=== PATIENT | male | born 1995 | race Caucasian/White ===

== ENCOUNTER → 2017-08-31 | Outpatient (CLI) | payer OTHER ==
[2017-08-31 19:55] LABS: FREE T4 0.81 NG/DL (0.78-1.33)
== END ==
LOC: M LAB 17:10
DX: E04.1 Nontoxic single thyroid nodule (principal)
CPT/HCPCS: 84443

== ENCOUNTER → 2017-12-09 | Outpatient (CLI) | payer OTHER ==
[2017-12-09 17:56] LABS: FREE T4 0.82 NG/DL (0.78-1.33)
== END ==
LOC: M WUC 15:49
DX: R94.6 Abnormal results of thyroid function studies (principal)
CPT/HCPCS: 84443